=== PATIENT | female | born 1995 | race African-American/Black ===

== ENCOUNTER 2018-03-28 03:47 | Emergency (ER) | payer BC ==
[~2018-03-28] VITALS: Ht 154.9 cm; Wt 51.4 kg
[~2018-03-28 03:47] MED LIST: NAPROSYN500 MG PO; NORCO 325 MG-51 TAB PO
[2018-03-28 03:51] VITALS: TEMP 98
[2018-03-28 04:10] LABS: COLLECTION METHOD CLEAN CATCH
[2018-03-28 04:16] LABS: PH 7 (5-8); SQUAMOUS EPITHELIAL 0-2 /hpf; URINE APPEARANCE Clear; URINE BACTERIA None Seen /hpf; URINE BILIRUBIN Negative (NEGATIVE); URINE BLOOD Negative (NEGATIVE); URINE COLOR Yellow; URINE GLUCOSE Negative (NEGATIVE); URINE KETONE Negative (NEGATIVE); URINE LEUKOCYTE ESTERASE Negative (NEGATIVE); URINE NITRATE Negative (NEGATIVE); URINE PROTEIN(semi-quant) Negative (NEGATIVE); URINE RBC 0-2 /hpf
[2018-03-28] MEDS ORDERED: LO LOESTRIN FE1 TAB PO (04:28)
[2018-03-28] MEDS ORDERED: BACTRIM 400 MG-1 TAB PO (04:28)
[2018-03-28 04:35] LABS: HEMOGLOBIN 12.7 g/dl (12.5-16.0); MEAN CELL VOLUME 88 fl (80.0-100.0); MEAN CORPUSCULAR HEMOGLOBIN 30 pg (27.0-31.0); MEAN CORPUSCULAR HGB CONC 34 g/dl (33.0-37.0); MEAN PLATELET VOLUME 12.4 fl (7.4-10.4); PLATELET COUNT 153 K/mm3 (130-400); RED BLOOD COUNT 4.23 M/mm3 (4.10-5.30); REDCELL DISTRIBUTION WIDTH-CV 13.3 % (11.5-14.5)
[2018-03-28 04:46] LABS: ALANINE AMINOTRANSFERASE 25 U/L (9-52); ALBUMIN 3.7 gm/dL (3.5-5.0); ALKALINE PHOSPHATASE 41 U/L (50-136); ANION GAP 7 mmol/L (7-16); AST,SGOT 20 U/L (15-37); BILIRUBIN,TOTAL 0.8 mg/dL (0.0-1.0); BLOOD UREA NITROGEN 8 mg/dL (7-17); CALCIUM 8.6 mg/dL (8.4-10.2); CARBON DIOXIDE 24 mmol/L (22-30); CHLORIDE 107 mmol/L (98-107); CREATININE, serum 0.79 mg/dL (0.52-1.25); GLUCOSE 82 mg/dL (74-106); LIPASE 96 U/L (23-300); POTASSIUM 3.8 mmol/L (3.4-5.0); SODIUM 139 mmol/L (137-145); TOTAL PROTEIN 6.9 gm/dL (6.4-8.2)
[2018-03-28 04:47] LABS: C-REACTIVE PROTEIN < 0.5 mg/dL (0.0-0.9)
[2018-03-28 04:50] LABS: EOSINOPHIL 2 % (0-4); LYMPHOCYTE 40 % (20.0-51.0); NEUTROPHILS 45 % (42.0-75.2)
[2018-03-28 04:51] LABS: PLATELET ESTIMATE NORMAL (NORMAL)
[2018-03-28] MEDS ORDERED: FLAGYL500 MG PO (06:33)
[2018-03-28 07:05] VITALS: BP 122/66; PULSE 76
== END 2018-03-28 07:13 | disposition home or self-care (01) ==
LOC: COL.ER 03:47
PROVIDERS: Emergency Medicine
DX: K59.00 Constipation, unspecified (principal); N76.0 Acute vaginitis; B96.89 Other specified bacterial agents as the cause of diseases classified elsewhere; R11.0 Nausea
CPT/HCPCS: J0500; J1885

== ENCOUNTER 2019-04-05 17:10 | Emergency (ER) | payer BC ==
[~2019-04-05] VITALS: Ht 157.5 cm; Wt 56.8 kg
[~2019-04-05 17:10] MED LIST changes: +BACTRIM 400 MG-1 TAB PO; +FLAGYL500 MG PO; +LO LOESTRIN FE1 TAB PO
[2019-04-05 17:26] VITALS: TEMP 97.8
[2019-04-05 18:22] LABS: BASO % 0.7 % (0.0-2.0); EOS # 0.1 (0.0-0.7); GRAN # 2.4 (1.4-6.5); GRAN % 38.9 % (42.2-75.2); HEMATOCRIT 38.2 % (37.0-47.0); LYMPH # 2.9 (1.2-3.4); LYMPH % 47.2 % (20.0-51.0); MEAN CELL VOLUME 87 fl (80.0-100.0); MEAN CORPUSCULAR HEMOGLOBIN 30 pg (27.0-31.0); MEAN CORPUSCULAR HGB CONC 34 g/dl (33.0-37.0); MONO # 0.7 (0.1-0.6); PLATELET COUNT 201 K/mm3 (130-400); RED BLOOD COUNT 4.41 M/mm3 (4.10-5.30); REDCELL DISTRIBUTION WIDTH-CV 14.7 % (11.5-14.5)
[2019-04-05 18:28] LABS: ALBUMIN 4.5 gm/dL (3.5-5.0); BILIRUBIN,TOTAL 0.9 mg/dL (0.0-1.0); CALCIUM 9.3 mg/dL (8.4-10.2); CREATININE, serum 0.63 (0.52-1.25); TOTAL PROTEIN 8.1 gm/dL (6.4-8.2)
[2019-04-05 18:44] LABS: COLLECTION METHOD CLEAN CATCH
[2019-04-05 18:48] LABS: PH 5 (5-8); SQUAMOUS EPITHELIAL 0-2 /hpf; URINE APPEARANCE Clear; URINE BACTERIA None Seen /hpf; URINE BILIRUBIN Negative (NEGATIVE); URINE BLOOD Negative (NEGATIVE); URINE COLOR Yellow; URINE GLUCOSE Negative (NEGATIVE); URINE KETONE Negative (NEGATIVE); URINE LEUKOCYTE ESTERASE Negative (NEGATIVE); URINE NITRATE Negative (NEGATIVE); URINE PROTEIN(semi-quant) Negative (NEGATIVE); URINE RBC 0-2 /hpf; URINE UROBILINOGEN Negative (NEGATIVE)
[2019-04-05 19:47] VITALS: BP 118/68; PULSE 72
[2019-04-05] MEDS ORDERED: FLEXERIL 1010 MG/TAB PO (19:50)
== END 2019-04-05 19:59 | disposition home or self-care (01) ==
LOC: COL.ER 17:10
PROVIDERS: Nurse Practitioner
DX: M54.5 Low back pain (principal); M54.6 Pain in thoracic spine; Z88.1 Allergy status to other antibiotic agents
CPT/HCPCS: J1885; Q9967

== ENCOUNTER 2019-04-09 01:27 | Emergency (ER) | payer BC ==
[~2019-04-09] VITALS: Ht 157.5 cm; Wt 54.5 kg
[~2019-04-09 01:27] MED LIST changes: +FLEXERIL 1010 MG/TAB PO
[2019-04-09 01:32] VITALS: TEMP 97.6
[2019-04-09] MEDS ORDERED: ATIVAN 1MG T1 MG/TAB PO (01:46)
[2019-04-09 02:19] VITALS: BP 107/68; PULSE 59
== END 2019-04-09 02:21 | disposition home or self-care (01) ==
LOC: COL.ER 01:27
DX: F41.9 Anxiety disorder, unspecified (principal); R07.89 Other chest pain

== ENCOUNTER 2019-07-28 18:04 | Emergency (ER) | payer BC ==
[~2019-07-28] VITALS: Ht 157.5 cm; Wt 56.4 kg
[~2019-07-28 18:04] MED LIST changes: +ATIVAN 1MG T1 MG/TAB PO
[2019-07-28 18:09] VITALS: TEMP 97.7
[2019-07-28 18:53] LABS: COLLECTION METHOD CLEAN CATCH
[2019-07-28 18:57] LABS: BASO # 0.1 (0.0-0.2); BASO % 0.8 % (0.0-2.0); EOS # 0.2 (0.0-0.7); EOS % 2.2 % (0-4.0); GRAN # 2.4 (1.4-6.5); GRAN % 33.4 % (42.2-75.2); HEMOGLOBIN 12.9 g/dl (12.5-16.0); LYMPH # 3.9 (1.2-3.4); LYMPH % 54.5 % (20.0-51.0); MEAN CELL VOLUME 87 fl (80.0-100.0); MEAN CORPUSCULAR HEMOGLOBIN 30 pg (27.0-31.0); MEAN CORPUSCULAR HGB CONC 34 g/dl (33.0-37.0); MEAN PLATELET VOLUME 12.8 fl (7.4-10.4); MONO # 0.6 (0.1-0.6); PLATELET COUNT 168 K/mm3 (130-400); RED BLOOD COUNT 4.36 M/mm3 (4.10-5.30); REDCELL DISTRIBUTION WIDTH-CV 13.3 % (11.5-14.5)
[2019-07-28 18:58] LABS: PH 7 (5-8); SQUAMOUS EPITHELIAL 0-2 /hpf; URINE APPEARANCE Clear; URINE BACTERIA None Seen /hpf; URINE BILIRUBIN Negative (NEGATIVE); URINE BLOOD Negative (NEGATIVE); URINE COLOR Yellow; URINE GLUCOSE Negative (NEGATIVE); URINE KETONE Negative (NEGATIVE); URINE LEUKOCYTE ESTERASE Negative (NEGATIVE); URINE NITRATE Negative (NEGATIVE); URINE PROTEIN(semi-quant) Negative (NEGATIVE); URINE RBC 0-2 /hpf; URINE UROBILINOGEN Negative (NEGATIVE)
[2019-07-28 19:06] LABS: ALANINE AMINOTRANSFERASE 12 U/L (9-52); ALBUMIN 4.3 gm/dL (3.5-5.0); ALKALINE PHOSPHATASE 81 U/L (50-136); ANION GAP 8 mmol/L (7-16); AST,SGOT 24 U/L (15-37); BILIRUBIN,TOTAL 1.1 mg/dL (0.0-1.0); BLOOD UREA NITROGEN 7 mg/dL (7-17); CALCIUM 9.1 mg/dL (8.4-10.2); CARBON DIOXIDE 27 mmol/L (22-30); CHLORIDE 103 mmol/L (98-107); CREATININE, serum 0.58 (0.52-1.25); GLUCOSE 81 mg/dL (74-106); LIPASE 124 U/L (23-300); POTASSIUM 3.8 mmol/L (3.4-5.0); SODIUM 138 mmol/L (137-145); TOTAL PROTEIN 7.8 gm/dL (6.4-8.2)
[2019-07-28 19:11] LABS: C-REACTIVE PROTEIN < 0.5 mg/dL (0.0-0.9)
[2019-07-28] MEDS ORDERED: ZOFRAN ODT4 MG PO (19:33)
[2019-07-28 19:44] VITALS: BP 116/72; PULSE 63
== END 2019-07-28 19:48 | disposition home or self-care (01) ==
LOC: COL.ER 18:04
PROVIDERS: Physician Assistant
DX: R10.12 Left upper quadrant pain (principal)

== ENCOUNTER 2020-07-01 22:38 | Inpatient (IN) | payer MEDICAID ==
[~2020-07-01] VITALS: Ht 157.5 cm; Wt 78.6 kg
[~2020-07-01 22:38] MED LIST changes: +ZOFRAN ODT4 MG PO
[2020-07-01 22:44] VITALS: BP 130/70; PULSE 74; TEMP 98.2
[2020-07-01] MEDS ORDERED: PRILOTC (22:55)
[2020-07-01] MEDS ORDERED: NATURAL IRON65 MG (22:55)
[2020-07-01] MEDS ORDERED: PRENATAL TABLET PO (22:55)
--- NOTE | 2020-07-01 23:00 | NUR ---
G1 at 37.4 weeks gestation ambulatory to LDR5 with c/o leaking of fluid since 2129. She reports clear fluid and denies vaginal bleeding. She reports good movement. Patient changed into gown and wedged to left side in bed. EFMs explained and applied. FHR 140 bpm and reactive. CTX q2-3 minutes per toco. VSS. SVE 3/80/-2 with positive amniotrace. Assessment completed and plan of care reviewed with patient and spouse.
[2020-07-01 23:39] LABS: HEMOGLOBIN 12.3 g/dl (12.5-16.0); MEAN CELL VOLUME 90 fl (80.0-100.0); MEAN CORPUSCULAR HEMOGLOBIN 30 pg (27.0-31.0); MEAN CORPUSCULAR HGB CONC 33 g/dl (33.0-37.0); PLATELET COUNT 157 K/mm3 (130-400); RED BLOOD COUNT 4.12 M/mm3 (4.10-5.30); REDCELL DISTRIBUTION WIDTH-CV 15.5 % (11.5-14.5)
[2020-07-01 23:41] LABS: HEMATOCRIT 36.9 % (37.0-47.0)
[2020-07-01 23:54] LABS: BAND 2 % (0-10); BASOPHIL 1 % (0-2); EOSINOPHIL 1 % (0-4); LYMPHOCYTE 26 % (20.0-51.0); NEUTROPHILS 64 % (42.0-75.2); PLATELET ESTIMATE NORMAL (NORMAL)
[2020-07-01 23:55] LABS: ANISOCYTOSIS 1+
[2020-07-02] VITALS (41 sets, daily range): BP systolic 92–131; BP diastolic 49–83; PULSE 71–107; TEMP 97–98.9
--- NOTE | 2020-07-02 01:00 | NUR ---
Patient more uncomfortable with contractions and requesting epidural. IVF bolus started. VISE HAND notified.
--- NOTE | 2020-07-02 01:48 | NUR ---
0133 MARIANN Peace to room to place epidural. Patient sits upright on the edge of the bed for placement. Test dose administered at 0148. See anesthesia record for details. 0152 Patient wedged to left side.
--- NOTE | 2020-07-02 03:00 | NUR ---
Recurrent FHR late decelerations noted over the past hour. Moderate variability and accelerations noted through FHR strip. Patient repositioned. IVF bolus given. O2 placed at 10L/mask. Roles updated on FHR tracing.
--- NOTE | 2020-07-02 06:00 | NUR ---
Roles at bedside to evalate FHR. SVE /-2. [facility] place. Plan of care reviewed.
--- NOTE | 2020-07-02 06:20 | NUR ---
REPORT RECIEVED FROM SLADE Shaw RN. DR SLATER AT BEDSIDE DISCUSSING SECTION AT 0620. ADDISON WAITE CALLED FOR SECTION. PATIENT PREPPED FOR AND WHEELED TO OPERATING ROOM. [facility] REMOVED AT 0632 OFF EFM AT 0635.
--- NOTE | 2020-07-02 08:03 | NUR ---
PATIENT REFUSED BRIDGETTE HOWARD
[2020-07-03 04:30] VITALS: BP 122/70; PULSE 73; TEMP 98.2
[2020-07-03 08:35] VITALS: BP 121/76; PULSE 66; TEMP 98
--- NOTE | 2020-07-03 08:35 | NUR ---
Mom verbalizes that she does not want a Flu shot while she is here.
--- NOTE | 2020-07-03 09:29 | NUR ---
Initial visit; Patient thanked [employer] Counselor for offering congratulations and God's blessings for the of her son. [employer] Counselor thanked family for choosing [facility].
[2020-07-03 17:45] VITALS: BP 121/78; PULSE 85; TEMP 98
[2020-07-03 21:20] VITALS: BP 117/69; PULSE 73; TEMP 97.6
[2020-07-04 07:13] VITALS: BP 110/62; PULSE 70; TEMP 97.9
[2020-07-04] MEDS ORDERED: MOTRIN 800800 MG/TAB PO (07:13)
[2020-07-04] MEDS ORDERED: PERCOCET 325 MG1 TA2 PO (07:13)
[2020-07-04] MEDS ORDERED: SENOKOT S 50 MG1 TAB PO (07:15)
== END 2020-07-04 16:00 | disposition home or self-care (01) | DRG 788 ==
LOC: LDRO 22:38 → LDR 23:24 → OB 23:24
PROVIDERS: Obstetrics & Gynecology; ADMIT Obstetrics & Gynecology
PROC: 10D00Z1 Extraction of Products of Conception, Low, Open Approach (ICD-10-PCS; principal; 2020-07-02)
DX: O76 Abnormality in fetal heart rate and rhythm complicating labor and delivery (principal); Z3A.37 37 weeks gestation of pregnancy; Z37.0 Single live birth
CPT/HCPCS: J0690; J1100; J1885; J2270; J2405; J2590; J7120

== ENCOUNTER 2020-09-12 23:31 | Emergency (ER) | payer MEDICAID ==
[~2020-09-12] VITALS: Ht 157.5 cm; Wt 68.2 kg
[~2020-09-12 23:31] MED LIST changes: +MOTRIN 800800 MG/TAB PO; +NATURAL IRON65 MG; +PERCOCET 325 MG1 TA2 PO; +PRENATAL TABLET PO; +PRILOTC; +SENOKOT S 50 MG1 TAB PO
[2020-09-13 01:24] LABS: BASO # 0.1 (0.0-0.2); BASO % 0.5 % (0.0-2.0); EOS # 0.1 (0.0-0.7); EOS % 0.7 % (0-4.0); GRAN # 6.7 (1.4-6.5); GRAN % 70.6 % (42.2-75.2); HEMATOCRIT 38.3 % (37.0-47.0); HEMOGLOBIN 12.6 g/dl (12.5-16.0); LYMPH # 1.9 (1.2-3.4); LYMPH % 20.3 % (20.0-51.0); MEAN CELL VOLUME 87 fl (80.0-100.0); MEAN CORPUSCULAR HEMOGLOBIN 29 pg (27.0-31.0); MEAN CORPUSCULAR HGB CONC 33 g/dl (33.0-37.0); MEAN PLATELET VOLUME 12.2 fl (7.4-10.4); MONO # 0.7 (0.1-0.6); MONO % 7.7 % (1.7-9.3); PLATELET COUNT 203 K/mm3 (130-400); RED BLOOD COUNT 4.38 M/mm3 (4.10-5.30); REDCELL DISTRIBUTION WIDTH-CV 14.3 % (11.5-14.5)
[2020-09-13 01:29] LABS: COLLECTION METHOD CLEAN CATCH
[2020-09-13 01:34] LABS: MUCOUS Present /lpf; PH 5 (5-8); SQUAMOUS EPITHELIAL 0-2 /hpf; URINE APPEARANCE Clear; URINE BACTERIA None Seen /hpf; URINE BILIRUBIN Negative (NEGATIVE); URINE BLOOD Negative (NEGATIVE); URINE COLOR Yellow; URINE GLUCOSE Negative (NEGATIVE); URINE KETONE Negative (NEGATIVE); URINE LEUKOCYTE ESTERASE Negative (NEGATIVE); URINE NITRATE Negative (NEGATIVE); URINE PROTEIN(semi-quant) Negative (NEGATIVE); URINE RBC 0-2 /hpf; URINE UROBILINOGEN Negative (NEGATIVE)
[2020-09-13 01:37] LABS: BILIRUBIN,TOTAL 0.3 mg/dL (0.0-1.0); C-REACTIVE PROTEIN 0.8 mg/dL (0.0-0.9); CALCIUM 9.1 mg/dL (8.4-10.2); CREATININE, serum 0.71 (0.52-1.25); POTASSIUM 4.2 mmol/L (3.4-5.0); TOTAL PROTEIN 7.9 gm/dL (6.4-8.2)
[2020-09-13] MEDS ORDERED: MOTRIN 800800 MG/TAB PO (02:43)
[2020-09-13 03:04] VITALS: BP 114/52; PULSE 91; TEMP 98
== END 2020-09-13 03:25 | disposition home or self-care (01) ==
LOC: COL.ER 23:31
PROVIDERS: Emergency Medicine
DX: G89.18 Other acute postprocedural pain (principal); R10.30 Lower abdominal pain, unspecified; Z88.1 Allergy status to other antibiotic agents
CPT/HCPCS: J1885; J2405; J7030

== ENCOUNTER 2020-10-27 11:43 | Emergency (ER) | payer MEDICAID ==
[~2020-10-27] VITALS: Ht 157.5 cm; Wt 65.9 kg
[2020-10-27 11:55] VITALS: TEMP 97.5
[2020-10-27] MEDS ORDERED: SPRINTEC 35 MCG1 TAB PO (13:11)
[2020-10-27 13:30] VITALS: BP 111/75; PULSE 60
== END 2020-10-27 13:40 | disposition home or self-care (01) ==
LOC: COL.ER 11:43
DX: M25.562 Pain in left knee (principal)